=== PATIENT | male | born 1935 | race Caucasian/White ===

== ENCOUNTER 2016-12-04 09:00 | Day surgery (SDC) | payer MEDICARE, BC ==
[~2016-12-04 09:00] MED LIST: Acetaminophen TAB* 325 MG PO PRN; Buffered Lidocaine 1% SYRIN* 3 ML/SYR SYRINGE INTRADERM ONE
[2016-12-04] MEDS ORDERED: Midazolam* 1 MG/ML 5 ML VIAL (5 MG) ONE (11:01)
[2016-12-04 13:14] VITALS: BP 125/61
[2016-12-04] MEDS ORDERED: Cyclopentolate 1% OPTH.SOL* 2 ML BTL ONE ×2 (13:43→13:45)
[2016-12-04] MEDS ORDERED: acetaZOLAMIDE TAB* 250 MG ONE ×2 (13:43→13:45)
[2016-12-04] MEDS ORDERED: Proparacaine 0.5% OPHTH.SOL* 15 ML BTL ONE ×2 (13:43→13:45)
[2016-12-04] MEDS ORDERED: Lidocaine 1% MPF* 2 ML VIAL ONE ×2 (13:43→13:45)
[2016-12-04] MEDS ORDERED: Lidocaine 2% EPI 1:200000 MPF* 20 ML VIAL ONE ×2 (13:43→13:45)
[2016-12-04] MEDS ORDERED: Povidone Iodine 5% OPTH* 30 ML BTL ONE ×2 (13:43→13:45)
[2016-12-04] MEDS ORDERED: Neomycin/Polymy/Dex OPTH.SUSP* MAXITROL 0.1% 5 ML ONE ×2 (13:43→13:45)
[2016-12-04] MEDS ORDERED: Flurbiprofen 0.03% OPTH.SOL* 2.5 ML BTL ONE ×2 (13:43→13:45)
[2016-12-04] MEDS ORDERED: Phenylephrine 2.5% OPTH.SOL* 2 ML BTL ONE ×2 (13:43→13:45)
--- NOTE | 2016-12-04 15:34 | OP ---
DATE OF OPERATION: 12/04/2016 - [facility] DATE OF : 1935. SURGEON: Pa Washington M.D. PREOPERATIVE DIAGNOSIS: Cataract left eye. POSTOPERATIVE DIAGNOSIS: Cataract left eye. OPERATIVE PROCEDURE: Phacoemulsification left eye with IOL. DESCRIPTION OF PROCEDURE: The patient was brought to the operating room after being given 1/2% Alcaine with epinephrine drops in the preoperative area. The eye was prepped and draped in the usual sterile fashion. Sterile drape and eyelid speculum were placed. Again, topical 1/2% Alcaine with epinephrine was given. A paracentesis incision was made at the 3 o'clock position with the No.75 blade. Clear cornea incision 2.2 x 2.2-mm was created at the 6 o'clock position starting at the anterior limbus using the 2.2-mm keratome. The anterior chamber was irrigated with 0.4 mL of 1% non-preservative intracameral lidocaine and filled with DisCoVisc. A capsulorrhexis was completed using the cystotome and the Utrata forceps. Hydrodissection was performed with balanced salt solution. The lens nucleus was removed with the Phacoemulsification handpiece without incident. Cortex was removed with the irrigation-aspiration handpiece. The capsular bag was re-inflated using DisCoVisc and an [id number] implant was inserted with the shooter. The pupil was only about 4 mm. A Malyugin ring was used to dilate the pupil prior to capsulorrhexis and removed after insertion of the lens. The irrigation-aspiration handpiece was used to remove all residual DisCoVisc. The eye was refilled with balanced salt solution and the wound checked and found to be watertight. Topical Maxitrol drops were given. Indication for complex cataract surgery: Iris abnormalities requiring pupil dilation device. [id number]/[facility] #: [id number] SPR[place]
== END 2016-12-04 12:31 | disposition home or self-care (01) ==
LOC: OREAST 09:00
PROVIDERS: ATTEND Specialist
DX: H25.812 Combined forms of age-related cataract, left eye (principal); Q13.2 Other congenital malformations of iris; H35.372 Puckering of macula, left eye; H35.3223 Exudative age-related macular degeneration, left eye, with inactive scar; I25.10 Atherosclerotic heart disease of native coronary artery without angina pectoris; I48.91 Unspecified atrial fibrillation; E11.9 Type 2 diabetes mellitus without complications; Z79.01 Long term (current) use of anticoagulants; Z95.1 Presence of aortocoronary bypass graft
CPT/HCPCS: A9270-GY; J2250; V2632

== ENCOUNTER 2018-08-17 13:02 | Emergency (ER) | payer MEDICARE, OTHER ==
[2018-08-17 14:32] VITALS: BP 131/59
--- NOTE | 2018-08-17 14:53 | UC ---
Throat Pain/Nasal Josue HPI - HPI Summary HPI Summary: 83 y/o male presents to the urgent care w/ c/o sore throat, body aches, + PND and a productive cough w/ a yellowish phlegm for the past 4 days. Pt reports. Pt states no flu vaccine this year, but he UTD w/ pneumoccocal vaccine. Pain w/ swallowing is 7/10 and is radiating to his left ear since last night. Pt has taking Tylenol PO to alleviate symptoms. Pt denies SOB, fever, wheezing, chest pain, abdominal pain, N/V/D, dizziness. - History of Current Complaint Chief Complaint: UCGeneralIllness Stated Complaint: ST,COUGH,LEFT EAR Time Seen by Provider: 08/17/18 14:52 Hx Obtained From: Patient Onset/Duration: Gradual Onset, Lasting Days - 4 days Severity: Moderate Pain Intensity: 7 - sore throat Pain Scale Used: 0-10 Numeric Cough: Productive - yellowish phelgm Associated Signs & Symptoms: Positive: Dysphagia, Nasal Discharge - yellowish. Negative: Fever - Epiglottits Risk Factors Epiglottis Risk Factors: Negative - Allergies/Home Medications Allergies/Adverse Reactions: Allergies Allergy/AdvReac Type Severity Reaction Status Date / Time No Known Allergies Allergy Verified 08/17/18 14:33 PMH/Surg Hx/FS Hx/Imm Hx Previously Healthy: Yes Endocrine History: Dyslipidemia Cardiovascular History: Cardiac Disease, Hypertension Other GI/ History: BPH - Surgical History Surgical History: Yes Surgery Procedure, Year, and Place: 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 GB 1994. appendix removed teenager. tonsils childhood. CATARACT SX--L EYE - Family History Known Family History: Positive: Cardiac Disease - Social History Occupation: Retired Lives: With Family Alcohol Use: None Substance Use Type: None Smoking Status (MU): Never Smoked Tobacco - Immunization History Vaccination Up to Date: No Review of Systems All Other Systems Reviewed And Are Negative: Yes Constitutional: Positive: Chills, Other - body ahces Skin: Positive: Negative Eyes: Positive: Negative ENT: Positive: Sore Throat, Ear Ache - left ear pain, Nasal Discharge - yellowish, Sinus Congestion Respiratory: Positive: Cough - productive w/ yellowish phlegm Cardiovascular: Positive: Negative Gastrointestinal: Positive: Negative Genitourinary: Positive: Negative Motor: Positive: Negative Neurovascular: Positive: Negative Musculoskeletal: Positive: Negative Neurological: Positive: Negative Psychological: Positive: Negative Is Patient Immunocompromised?: No Physical Exam - Summary Physical Exam Summary: VITAL SIGNS: Reviewed. GENERAL: Patient is a well developed and nourished old man who is sitting comfortable in the examining table. Patient is not in any acute respiratory distress. HEAD AND FACE: No signs of trauma. No ecchymosis, hematomas or skull depressions. No sinus tenderness. EYES: PERRLA, EOMI x 2, No injected conjunctiva, no nystagmus. No photophobia. EARS: Hearing grossly intact. B/L ear canals clear and LF TM injected w/ erythema and mild yellowish discharge. RT TM WNL. Nose: edematous and erythematous nasal mucosa w/ clear nasal discharge. MOUTH: Positive no erythema, no tonsillar enlargement. Uvula in midline. NECK: Supple, trachea is midline, Positive anterior cervical lymphadenopathy, no JVD, no carotid bruit, no c-spine tenderness, neck with full ROM. No meningeal signs, no Kernig's or brudzinskis signs. CHEST: Symmetric, no tenderness at palpation LUNGS: Clear to auscultation bilaterally. No wheezing or crackles. CVS: Regular rate and rhythm, S1 and S2 present, no murmurs or gallops appreciated. ABDOMEN: Soft, non-tender. No signs of distention. No rebound no guarding, and no masses palpated. Bowel sounds are normal. EXTREMITIES: FROM in all major joints, no edema, no cyanosis or clubbing. NEURO: Alert and oriented x 3. No acute neurological deficits. Speech is normal and follows commands. SKIN: Dry and warm Triage Information Reviewed: Yes Vital Signs: Initial Vital Signs Temp 97.6 F 08/17/18 14:28 Pulse 64 08/17/18 14:28 Resp 21 08/17/18 14:28 BP 131/59 08/17/18 14:28 Pulse Ox 97 08/17/18 14:28 Throat Pain/Nasal Course/Dx - Course Course Of Treatment: 83 y/o male presents to the urgent care w/ c/o sore throat, body aches, +PND and a productive cough w/ a yellowish phlegm for the past 4 days. Pt reports. Pt states no flu vaccine this year, but he UTD w/ pneumoccocal vaccine. Pain w/ swallowing is 7/10 and is radiating to his left ear since last night. Pt has taking Tylenol PO to alleviate symptoms. Pt denies SOB, fever, wheezing, chest pain, abdominal pain, N/V/D, dizziness. Hx obtained. Pt w/ URI and left otitis media on examination. Rapid strep negative, Influenza A&B negative. Chest X-ray ordered: Impression: left pleurla thickening w/ mid lung scaring and small atelectasis observed as per radiologist. Pt had an ecocardiogram this morning and has a f/u w/ drilling machine operator next week to discussed results. Pt given at the clinic Incentive spirometer to improve lung function and Nurse educated patient how to use it. Pt explained the importance to use it to improve atelectsis. Pt strongly adivsed to f/u w/ Commutator Inspector or his PCP as soon as possible for further evaluation and Tx on his pleural effusion. Pt is hemodynamicaly stable. Pt Rx Amoxicillin for his Otitis Media and Also Rx tessalon tabs PO to alleiviate cough. Pt and advised to rest, eat well and avoid strnuous exercise. D/C instructions explained. Pt and understood and agreed w/ patricia of care. Pt left clinic hemodynamically stable, A&Ox3. - Differential Dx/Diagnosis Differential Diagnosis/HQI/PQRI: Influenza, Laryngitis, Otitis Media, Pharyngitis, Sinusitis, Tonsillitis, URI, Other - pneumonia, bronchitis Provider Diagnosis: Left otitis media, Pleural effusion on left, Cough Discharge - Sign-Out/Discharge Documenting (check all that apply): Patient Departure - D/C home All imaging exams completed and their final reports reviewed: Yes - Discharge Plan Condition: Stable Disposition: HOME Prescriptions: Amoxicillin PO (*) [Amoxicillin 875 MG (*)] 875 mg PO BID #14 tab Benzonatate CAP* [Tessalon 100 MG CAP*] 100 mg PO TID #21 cap Patient Education Materials: Ear Infection (ED), Pleural Effusion (ED) Referrals: Chinyere Billings MD [Primary Care Provider] - 3 Days Additional Instructions: 1- Please take the full course of the antibiotic to avoid resistance. Take yogurts w/ probiotics or Culturelle to protect your GI system 2-Please take Tylenol PO q6-8hrs prn as instructed after meals to alleviate pain and swelling. Increase fluid intake, eat well, rest and avoid strenuous exercise 3- Take Tessalon tabs PO to alleviate cough 4- Use the Incentive Spirometry as the Nurse explained to improve lung function. 5- Please f/u w/ your PCP or Commutator Inspector in 2 days for further management in your small pleural effusion and results on the Electrocardiogram that was performed today at your Commutator Inspector office. 6-If symptoms symptoms worsen and you develop SOB, chest pain, fever despite taking antibiotics please go immediately to the ER for further evaluation and treatment. - Billing Disposition and Condition Condition: STABLE Disposition: Home
== END 2018-08-17 16:55 | disposition home or self-care (01) ==
LOC: UCCORT 13:02
DX: H66.92 Otitis media, unspecified, left ear (principal); J90 Pleural effusion, not elsewhere classified; R05 Cough; I25.10 Atherosclerotic heart disease of native coronary artery without angina pectoris; I10 Essential (primary) hypertension; Z95.1 Presence of aortocoronary bypass graft
CPT/HCPCS: 71046; 87651; 99212; G0463

== ENCOUNTER 2019-04-29 14:35 | Emergency (ER) | payer MEDICARE, OTHER ==
--- OUTSIDE RECORDS SUMMARY | 2019-04-29 14:53 | XMS REPORT | Continuity of Care Document ---
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 Onset: 07/01/2011 Electrocardiogram abnormal Gopi Marquez M.D. Onset: 07/01/2011 Coronary arteriosclerosis Gopi Marquez M.D. Onset: 07/01/2011 Aortocoronary Bypass Postsurgical Gopi Marquez M.D. Onset: 2010 Status Benign essential hypertension Gopi Marquez M.D. Onset: 07/01/2011 Paroxysmal ventricular tachycardia Gopi Marquez M.D. Onset: 2010 History of coronary artery bypass Gopi Marquez M.D. Onset: 2014 grafting Essential hypertension Gopi Marquez M.D. Onset: 06/27/2015 Social History Type Date Description Comments Sex Unknown Tobacco Use Start: Unknown Never Smoked Cigarettes Smoking Status Reviewed: 03/30/19 Never Smoked Cigarettes ETOH Use Denies alcohol use Tobacco Use Start: Unknown Patient has never smoked Recreational Drug Use Denies Drug Use Exercise Type/Frequency Exercises regularly Allergies, Adverse Reactions, Alerts Description No Known Drug Allergies Medications Active Medications SIG Qnty Indications Ordering Provider Date Crestor 1 qpm po Gopi Bill 04/03/2012 5mg Tablets Triston Marquez Hemp Oil 15 gtts daily SL Unknown 15gtts Liquid Leslie Allergy 1 by mouth every Unknown 60mg day Tablets Beta Carotene 1 po qd Unknown 30mg Capsules Guaifenesin/Codeine as needed for Unknown cough Memory Gris 1 po daily Unknown Tablets [facility] 1 by mouth every Unknown day Tablets Saw Platinum 1 po daily Unknown Glucosamine 1 by mouth bid Unknown Chondroitin 1500Com Capsules Calcium Magnesium daily Unknown 300-300mg Tablets Vitamin B Complex 1 tab daily Unknown Tablets Finasteride 1 po qd 30tabs Unknown 5mg Tablets Vitamin C 1 po bid Qutaybeh S. 500- Triston Marquez Capsules Multi Vitamin 1 po daily 30tabs Unknown Tablets Vit D 1 po qd Unknown 5000Iu Aspirin 1 po qd Unknown 81mg Tablets Metoprolol Tartrate 1 by mouth tablet 135tabs Qutaybeh S. in in the morning Triston Marquez 50mg Tablets and 1/2 at night Ramipril 1 by mouth twice 180caps Manuel F. 5mg Capsules a day Triston Sheppard Dilt-XR 1 by mouth twice 180caps Qutaybeh S. 120mg Caps ER a day Triston Marquez 24HR Coumadin 2-3 tabs qd or as 270tabs Qutaybeh S. 2mg Tablets directed Triston Marquez Medications Administered in Office Medication SIG Qnty Indications Ordering Provider Date Depomedrol 40MG Rodríguez Aguirre MD 03/30/2019 Injection Celestone 3 mg and 3mg Rodríguez Aguirre MD 10/27/2018 Injection Celestone 3 mg and 3mg Rodríguez Aguirre MD 05/07/2018 Injection Celestone 3 mg and 3mg Rodríguez Aguirre MD 05/07/2018 Injection Celestone 3 mg and 3mg Rodríguez Aguirre MD 10/30/2017 Injection Celestone 3 mg and 3mg Rodríguez Aguirre MD 10/30/2017 Injection Celestone 3 mg and 3mg Rodríguez Aguirre MD 06/26/2017 Injection Inj, Regadenoson, 0.1 MG Chavo Valencia M.D., 05/27/2017 Injection FACC, FASNC Technetium TC 99M Chavo Valencia M.D., 05/27/2017 Tetrofosmin, Per Unit Dose FACC, FASNC Up To 40 Millicuries Injection Celestone 3 mg and 3mg Rodríguez Aguirre MD 01/09/2017 Injection Depomedrol 40MG Rodríguez Aguirre MD 07/25/2016 Injection Immunizations Description No Information Available Vital Signs Date Vital Result Comment 03/30/2019 8:21am Height 67 inches 5'7" Weight 186.00 lb Heart Rate 60 /min BP Systolic Sitting 142 mmHg BP Diastolic Sitting 76 mmHg Respiratory Rate 18 /min O2 % BldC Oximetry 96 % BMI (Body Mass Index) 29.1 kg/m2 10/27/2018 1:40pm Height 67 inches 5'7" Weight 185.00 lb BP Systolic Sitting 138 mmHg BP Diastolic Sitting 68 mmHg Respiratory Rate 16 /min Pain Level 1 BMI (Body Mass Index) 29.0 kg/m2 Results Description No Information Available Procedures Date Code Description Status 03/30/2019 40757 Inject/Drain Joint/Bursa Major W/O US Completed 10/27/2018 05407 Inject/Drain Joint/Bursa Major W/O US Completed Medical Devices Description No Information Available Encounters Description No Information Available Assessments Date Code Description Provider 03/30/2019 M17.11 Unilateral primary osteoarthritis, right knee Rodríguez Aguirre MD 10/27/2018 M17.0 Bilateral primary osteoarthritis of knee Rodríguez Aguirre MD Plan of Treatment Future Appointment(s):05/25/2019 2:00 pm - Gopi Marquez M.D. at [facility]03/30/2019 - Rodríguez Aguirre, MDM17.11 Unilateral primary osteoarthritis, right kneeFollow up:Follow up: As needed Functional Status Description No Information Available Mental Status Description No Information Available Referrals Description No Information Available
[2019-04-29 15:07] VITALS: BP 124/56
--- NOTE | 2019-04-29 15:18 | UC ---
Respiratory Complaint HPI - HPI Summary HPI Summary: 83 yo diabetic man with hx of CAD, hospitalized with pneumonia early in 2019. Caught a chill while mowing earlier this week, and also was aware of some over airconditioned rooms while travelling to [place] this past week. He has sore throat, sinus congestion, some cough without production. No shortness of breath or chest pain. Appetite normal, activity overall normal. Blood sugar this am was 101 and he has done well this summer with planned weight loss. - History of Current Complaint Chief Complaint: UCRespiratory Stated Complaint: COUGH Time Seen by Provider: 04/29/19 15:16 Hx Obtained From: Patient, Family/Services Coordinator - here with his , Zahira Onset/Duration: Gradual Onset, Lasting Days - 2 Timing: Constant Severity Initially: Mild Severity Currently: Moderate Pain Intensity: 0 Character: Cough: Nonproductive Aggravating Factors: Exertion, Recumbent Position Alleviating Factors: Bronchodilator - has one from past admission Associated Signs And Symptoms: Positive: Chills, URI, Nasal Congestion, Sinus Discomfort. Negative: Wheezing, Hemoptysis, Edema - Risk Factors Pulmonary Embolism Risk Factors: Recent Travel Cardiac Risk Factors: Hypertension, Diabetes, Prior [place] Pseudomonas Risk Factors: Negative Tuberculosis Risk Factors: Negative - Allergies/Home Medications Allergies/Adverse Reactions: Allergies Allergy/AdvReac Type Severity Reaction Status Date / Time No Known Allergies Allergy Verified 04/29/19 14:55 Home Medications: Home Medications Cholecalciferol (Vitamin D3) [Vitamin D3] 2,000 unit PO DAILY 04/29/19 [History Confirmed 04/29/19] Memory Builder 1 tab PO DAILY 04/29/19 [History Confirmed 04/29/19] Saw Savoy Fruit/Zinc Picoli [Saw [place]oy Extract] 1 cap PO DAILY 04/29/19 [ History Confirmed 04/29/19] PMH/Surg Hx/FS Hx/Imm Hx Endocrine History: Diabetes Cardiovascular History: Cardiac Disease, Hypertension, Atrial Fibrillation GI/ History: Gastroesophageal Reflux - Surgical History Surgical History: Yes Surgery Procedure, Year, and Place: 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 GB 1994. appendix removed teenager. tonsils childhood. CATARACT SX--L EYE - Family History Known Family History: Positive: Cardiac Disease - Social History Occupation: Retired Lives: With Family Alcohol Use: None Substance Use Type: None Smoking Status (MU): Never Smoked Tobacco - Immunization History Vaccination Up to Date: No Review of Systems All Other Systems Reviewed And Are Negative: Yes Constitutional: Positive: Chills, Fatigue ENT: Positive: Sore Throat, Nasal Discharge, Sinus Congestion Respiratory: Positive: Cough. Negative: Shortness Of Breath Cardiovascular: Negative: Palpitations, Chest Pain Gastrointestinal: Negative: Abdominal Pain, Diarrhea, Nausea Genitourinary: Positive: Negative Motor: Positive: Negative Neurovascular: Positive: Negative Musculoskeletal: Positive: Negative Neurological: Positive: Negative Psychological: Positive: Negative Physical Exam Triage Information Reviewed: Yes Appearance: Well-Appearing, No Pain Distress, Obese Vital Signs: Initial Vital Signs Temp 98.9 F 04/29/19 15:00 Pulse 66 04/29/19 15:00 Resp 24 04/29/19 15:00 BP 124/56 04/29/19 15:00 Pulse Ox 97 04/29/19 15:00 ENT: Positive: Pharyngeal erythema, TMs normal - hearing aides removed Neck: Positive: Supple, Nontender, No Lymphadenopathy Respiratory: Positive: Lungs clear, Normal breath sounds - possibly mild decrease to left base, but no wheeze or crackles. Cardiovascular: Positive: RRR - low pulse, sounds regular., No Murmur Abdomen Description: Positive: Nontender, No Organomegaly, Soft Neurological: Positive: Alert, Muscle Tone Normal Psychological Exam: Normal Skin Exam: Normal Respiratory Course/Dx - Course Course Of Treatment: given hx of pneumonia with progressive symptoms, will begin use of cephalexin and have him rest at home. No indication for chest xray given no fever and clinically has good air entry. - Differential Dx/Diagnosis Differential Diagnosis/HQI/PQRI: Asthma, Bronchitis, Lower Resp Infection, Sinusitis Provider Diagnosis: Sinusitis Discharge ED - Sign-Out/Discharge Documenting (check all that apply): Patient Departure All imaging exams completed and their final reports reviewed: No Studies - Discharge Plan Condition: Stable Disposition: HOME Prescriptions: Cephalexin CAP* [Keflex 500 CAP*] 500 mg PO TID #21 cap Patient Education Materials: Sinusitis (ED) Referrals: Chinyere Billings MD [Primary Care Provider] - Additional Instructions: Clinically, your infection is primarily in the sinuses and upper respiratory system. Given you history of pneumonia, please begin use of cephalexin and ensure increase in rest and fluids. Use your inhaler as needed. Follow up if you develop fever or have progressive shortness of breath. - Billing Disposition and Condition Condition: STABLE Disposition: Home
== END 2019-04-29 15:48 | disposition home or self-care (01) ==
LOC: UCCORT 14:35
DX: J32.9 Chronic sinusitis, unspecified (principal); I25.10 Atherosclerotic heart disease of native coronary artery without angina pectoris; E11.9 Type 2 diabetes mellitus without complications; I10 Essential (primary) hypertension; I25.2 Old myocardial infarction
CPT/HCPCS: 99212; G0463

== ENCOUNTER 2019-10-19 14:17 | Emergency (ER) | payer MEDICARE, OTHER ==
--- OUTSIDE RECORDS SUMMARY | 2019-10-19 15:24 | XMS REPORT | Continuity of Care Document ---
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 Active Problems Provider Date Mucus in stool Lauren Gudino PA-C Onset: 07/27/2019 Diarrhea Lauren Gudino PA-C Onset: 07/27/2019 Constipation Lauren Gudino PA-C Onset: 07/27/2019 Social History Type Date Description Comments Sex Unknown Tobacco Use Start: Unknown Patient has never smoked Smoking Status Reviewed: 07/27/19 Patient has never smoked Allergies, Adverse Reactions, Alerts Description No Known Drug Allergies Medications Active Medications SIG Qnty Indications Ordering Provider Date Finasteride 1 by mouth 90tabs Andrew Hale, 5mg Tablets every day ProctosoLuis Miguel Gracia MD 2.5% Cream Metoprolol Tartrate 1 tab in am and 180tabs Alma, 50mg 1/2 tab in danyelle. MD Gopi Tablets Warfarin Sodium 2 tab a day Maghaydsalinas, 2mg Fri,, MD Gopi Tablets Sat.Sun. 3 tab a day Mon., Wed.,Fri Ramipril 1 by mouth 30caps Maghaydsalinas, 5mg Capsules every day MD Gopi Diltiazem HCL ER 1 by mouth 90caps Alma, Coated Beads every day MD Gopi 120mg Caps ER 24HR Rosuvastatin Calcium 1 by mouth 90tabs Luis Miguel Parrish MD 5mg every day Tablets Immunizations Description No Information Available Vital Signs Date Vital Result Comment 07/27/2019 12:51pm Height 66 inches 5'6" Weight 185.00 lb BP Systolic 133 mmHg BP Diastolic 72 mmHg Heart Rate 65 /min BMI (Body Mass Index) 29.9 kg/m2 Results Test Acquired Date Facility Test Result H/L Range Note Laboratory test 08/23/2019 [facility] C Difficile PCR SEE RESULT 1, 2 finding BELOW 1 [id number] 2 SEE RESULT BELOW Name: MARITZA LYNNE : [address]: Lauren DEUTSCH Acct: [id number] Unit: [id number] AGE: 84 Location: [facility] Re08/23/19 SEX: M Status: REG REF SPEC: [id number] SONAM: 08/23/19-[address] [facility] [address]: Lauren DEUTSCH REQ: [id number] RECD: 08/24/19-1255 STATUS: COMP _ SOURCE: STOOL SPDESC: ORDERED: C. diff PCR, Stool Culture, Fecal Lactoferr, O P: Giar/Crypt COMMENTS: [id number] Procedure Result Reported Site Stool Culture Final 08/26/19- 1443 ML Organism 1 AEROMONAS SPECIES Result No additional pathogens isolated Testing for Salmonella, Shigella, Aeromonas, Plesiomonas, Yersinia and Campylobacter are included in a Stool Culture. Vibrio spp not routinely tested for in a stool culture. If testing is desired, please request specifically when placing test order. Sensitivities not routinely performed on stool isolates, as antibiotics may prolong the carriage rate of bacteria. Please contact the microbiology lab if sensitivities are required. Stool Specimen Description Final 08/25/19- 0814 ML Stool Color Brown Stool Form Nonformed Stool Consistency Liquid with Solid pieces Shiga Toxin 1 2 Final 08/25/19- 1143 ML Organism 1 Negative Shiga Toxin 1 2 CONTINUED ON NEXT PAGE DEPARTMENT OF PATHOLOGY, [address] [place] [address] Rg Tirado M.D. Director [facility] # [id number] Patient: MARITZA LYNNE [id number] (Continued) Specimen: [id number] Collected: 08/23/19-799 Received: 08/24/19-1255 (Continued) Procedure Result Reported Site Shiga Toxin 1 2 Final (continued) 08/25/19- 1142 Immunochromatographic Assay. As with all diagnostic procedures, the laboratory results obtained should be used in conjunction with other clinical information available to the physician, including confirmation by another method, as applicable. C. difficile PCR Final 08/24/19- 1641 ML Organism 1 027 Presumptive NEGATIVE Organism 2 Toxigenic C.diff NEGATIVE Fecal Lactoferrin (Stool WBC) Final 08/25/19- 1144 ML Fecal Lactoferrin Positive by Immunoassay TEST LIMITATIONS: Assay detects elevated levels of lactoferrin released from fecal leukocytes as a marker of intestinal inflammation. The test may not be appropriate in immunocompromised persons. Fecal samples from breast fed infants should not be used with this assay. O P: Giardia/Cryptospor Screen Final 08/25/19- 1142 ML Organism 1 Neg Cryptosporidium/Giardia Giardia and cryptosporidium antigen testing performed by enzyme immunoassay. If patient is immunocompromised or has traveled to or is from a developing country, a full ova and parasite exam with microscopic (OPMIC) is recommended. All samples will be held 21 days in case full ova and parasite testing is requested. Contact the Microbiology Department at [phone]. TEST LIMITATIONS: As with all diagnostic procedures, the results obtained should be used in conjunction with other clinical CONTINUED ON NEXT PAGE DEPARTMENT OF PATHOLOGY, [address] [place] [address] Rg Tirado M.D. Director [facility] # [id number] Patient: MARITZA LYNNE [id number] (Continued) Specimen: [id number] Collected: 08/23/19 Received: 08/24/19-1256 (Continued) Procedure Result Reported Site O P: Giardia/Cryptospor Screen Final (continued) 08/25/19- 1142 information available to the physician, including confirmation by another method. Negative results can occur in samples containing antigen below lower limits of detection of the assay. One negative specimen does not rule out the possibility of a parasitic infection. To improve detection it is recommended that three specimens be collected on separate days over a period of not more than seven days. The use of colonic washes, aspirates or other diluted sample types has not been established and could affect the performance of the assay. Stool samples contaminated with an oily or particulate base (eg. Barium, mineral oil etc.) could interfere with the test and are not recommended. * ML - Main Lab . END OF REPORT DEPARTMENT OF PATHOLOGY, [address] [place] [address] Rg Tirado M.D. Director [facility] # [id number] Procedures Description No Information Available Medical Devices Description No Information Available Encounters Type Date Location Provider Dx Diagnosis Office Visit 07/27/2019 Gastroenterology Lauren Padilla K62.89 Other specified 1:00p [facility] COLEEN Gudino diseases of anus and rectum K59.00 Constipation, unspecified R19.7 Diarrhea, unspecified Assessments Date Code Description Provider 07/27/2019 K62.89 Other specified diseases of anus and Lauren Gudino PA-C rectum 07/27/2019 K59.00 Constipation, unspecified Lauren Gudino PA-C 07/27/2019 R19.7 Diarrhea, unspecified Lauren Gudino PA-C Plan of Treatment No Information Available Functional Status Description No Information Available Mental Status Description No Information Available Referrals Description No Information Available
[2019-10-19 16:26] VITALS: BP 132/53
--- NOTE | 2019-10-19 16:55 | UC ---
Respiratory Complaint HPI - HPI Summary HPI Summary: 84 yo male with productive cough x 2 days fatigue malaise nasal congestion chills ? fever - History of Current Complaint Chief Complaint: UCGeneralIllness Stated Complaint: COUGH Time Seen by Provider: 10/19/19 16:29 Hx Obtained From: Patient Onset/Duration: Gradual Onset, Lasting Days Timing: Constant Severity Initially: Mild Severity Currently: Moderate Pain Intensity: 0 Pain Scale Used: 0-10 Numeric Character: Cough: Productive Aggravating Factors: Nothing Alleviating Factors: Other Associated Signs And Symptoms: Positive: Fever - ?, Chills, Nasal Congestion - Allergies/Home Medications Allergies/Adverse Reactions: Allergies Allergy/AdvReac Type Severity Reaction Status Date / Time No Known Allergies Allergy Verified 10/19/19 16:26 Home Medications: Home Medications Metoprolol Tartrate TAB* [Lopressor TAB*] 25 mg PO QPM 01/16/13 [History Confirmed 10/19/19] Rosuvastatin Calcium [Crestor] 5 mg PO QPM 01/16/13 [History Confirmed 10/19/19] Warfarin TAB(*) [Coumadin TAB(*)] 6 mg PO SEE INSTRUCTIONS 01/16/13 [History Confirmed 10/19/19] Diltiazem HCl [Cardizem] 120 mg PO BID 02/27/13 [History Confirmed 10/19/19] Finasteride 5 mg PO QAM 02/27/13 [History Confirmed 10/19/19] Metoprolol Tartrate 50 mg PO QAM 02/27/13 [History Confirmed 10/19/19] Ramipril 5 mg PO BID 02/27/13 [History Confirmed 10/19/19] Ascorbic Acid TAB* [Vitamin C TAB*] 1 tab PO BID 11/28/16 [History Confirmed ] B-Complex Vitamins [Vitamin B Complex] 1 tab PO QAM 11/28/16 [History Confirmed 10/19/19] Balanced Health With [place] 1 tab PO QAM 11/28/16 [History Confirmed 10/19/19] Beta Carotene 1 tab PO BID 11/28/16 [History Confirmed 10/19/19] Calcium W/ Magnesium [Calcium Magnesium 750 300-300 mg] 1 tab PO QAM 11/28/16 [ History Confirmed 10/19/19] Qzsfsyhfnad-Zgrgokoywsv-Nos C- 1 cap PO BID 11/28/16 [History Confirmed 10/19/19 ] Misc Natural Products [Prostate Health] 1 cap PO BID 11/28/16 [History Confirmed 10/19/19] Vision Health With Lutein 1 tab PO QAM 11/28/16 [History Confirmed 10/19/19] Cholecalciferol (Vitamin D3) [Vitamin D3] 2,000 unit PO DAILY 04/29/19 [History Confirmed 10/19/19] Amoxicillin PO (*) [Amoxicillin 875 MG (*)] 875 mg PO BID #14 tab 10/19/19 [Rx] PMH/Surg Hx/FS Hx/Imm Hx Previously Healthy: Yes Endocrine History: Diabetes, Dyslipidemia Cardiovascular History: Cardiac Disease, Hypertension Respiratory History: Pneumonia - Surgical History Surgical History: Yes Surgery Procedure, Year, and Place: 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 GB 1994. appendix removed teenager. tonsils childhood. CATARACT SX--L EYE - Family History Known Family History: Positive: Cardiac Disease, Hypertension - Social History Alcohol Use: None Substance Use Type: None Smoking Status (MU): Never Smoked Tobacco - Immunization History Vaccination Up to Date: No Review of Systems All Other Systems Reviewed And Are Negative: Yes Constitutional: Positive: Fever - ?, Chills, Fatigue Skin: Positive: Rash Eyes: Positive: Negative ENT: Positive: Nasal Discharge Respiratory: Positive: Cough Cardiovascular: Positive: Negative Gastrointestinal: Positive: Negative Genitourinary: Positive: Negative Motor: Positive: Negative Neurovascular: Positive: Negative Musculoskeletal: Positive: Negative Neurological/Mental Status: Positive: Negative Psychological: Positive: Negative Physical Exam Triage Information Reviewed: Yes Appearance: Well-Appearing, No Pain Distress, Well-Nourished Vital Signs: Initial Vital Signs Temp 97.5 F 10/19/19 16:22 Pulse 63 10/19/19 16:22 Resp 18 10/19/19 16:22 BP 132/53 10/19/19 16:22 Pulse Ox 96 10/19/19 16:22 Vital Signs Reviewed: Yes Eyes: Positive: Conjunctiva Clear ENT: Positive: Nasal congestion, Nasal drainage, Uvula midline. Negative: Hearing grossly normal - bilat hearing aids, Tonsillar swelling, Tonsillar exudate, Trismus, Muffled voice, Hoarse voice, Dental tenderness, Sinus tenderness Dental: Negative: Abscess @ Neck: Positive: Supple, Nontender, No Lymphadenopathy Respiratory: Positive: Normal breath sounds, No respiratory distress, No accessory muscle use, Decreased breath sounds - left base Cardiovascular: Positive: RRR Musculoskeletal: Positive: ROM Intact, No Edema Neurological: Positive: Alert Psychological Exam: Normal Skin Exam: Normal Diagnostics - Radiology No standard instances Radiology Interpretation Completed By: Radiologist Summary of Radiographic Findings: 1. THERE IS AGAIN SEEN DENSITY AT THE LEFT LUNG BASE CONSISTENT WITH ATELECTASIS VERSUS PNEUMONIA. THERE IS LINEAR DENSITY SEEN IN THE LATERAL VIEW CHEST X-RAY WHICH COULD BE DUE TO PLEURAL EFFUSION OR PERHAPS AN AIR-FLUID LEVEL AND A HIATAL HERNIA. IF IT WILL INFLUENCE CLINICAL MANAGEMENT, SUPERIOR CHARACTERIZATION COULD BE MADE WITH CT EXAMINATION. Respiratory Course/Dx - Differential Dx/Diagnosis Provider Diagnosis: Pneumonia Discharge ED - Sign-Out/Discharge Documenting (check all that apply): Patient Departure All imaging exams completed and their final reports reviewed: Yes - Discharge Plan Condition: Stable Disposition: HOME Prescriptions: Amoxicillin PO (*) [Amoxicillin 875 MG (*)] 875 mg PO BID #14 tab Patient Education Materials: Pneumonia (ED) Referrals: Sondra Rothman DO [Primary Care Provider] - 3 Days (recheck in 3-5 days) Additional Instructions: XR results THERE IS AGAIN SEEN DENSITY AT THE LEFT LUNG BASE CONSISTENT WITH ATELECTASIS VERSUS PNEUMONIA. THERE IS LINEAR DENSITY SEEN IN THE LATERAL VIEW CHEST X-RAY WHICH COULD BE DUE TO PLEURAL EFFUSION OR PERHAPS AN AIR-FLUID LEVEL AND A HIATAL HERNIA. IF IT WILL INFLUENCE CLINICAL MANAGEMENT, SUPERIOR CHARACTERIZATION COULD BE MADE WITH CT EXAMINATION. rest plain robitussin or mucinex - Billing Disposition and Condition Condition: STABLE Disposition: Home
[2019-10-19 17:00] LABS: Influenza A Molecular Negative (Negative); Influenza B Molecular Negative (Negative)
[2019-10-19] MEDS ORDERED: Amoxicillin PO (*) 500 MG CAP PO ONE (18:02)
[2019-10-19] MEDS ORDERED: Amoxicillin PO (*) 250 MG CAP PO ONE (18:02)
== END 2019-10-19 18:15 | disposition home or self-care (01) ==
LOC: UCCORT 14:17
DX: J18.9 Pneumonia, unspecified organism (principal); R21 Rash and other nonspecific skin eruption; E11.9 Type 2 diabetes mellitus without complications; I10 Essential (primary) hypertension; E78.5 Hyperlipidemia, unspecified; Z79.899 Other long term (current) drug therapy; Z79.01 Long term (current) use of anticoagulants; Z79.84 Long term (current) use of oral hypoglycemic drugs
CPT/HCPCS: 71046; 99212; A9270-GY; G0463